=== PATIENT | female | born 1975 | race Caucasian/White ===

== ENCOUNTER → 2017-01-02 | Outpatient (CLI) | payer OTHER ==
[~2017-01-02] MED LIST: VICODIN ES 7501 TAB PO
== END | disposition home or self-care (01) ==
LOC: MRI 09:40
DX: M43.07 Spondylolysis, lumbosacral region (principal); M54.5 Low back pain; R20.0 Anesthesia of skin

== ENCOUNTER → 2017-07-26 | Outpatient (CLI) | payer OTHER | LOC: MAMMO 07:57 | DX: Z12.31 Encounter for screening mammogram for malignant neoplasm of breast (principal) ==

== ENCOUNTER → 2017-08-22 | Outpatient (CLI) | payer OTHER | END | disposition home or self-care (01) | LOC: MAMMO 08:27 | DX: N60.01 Solitary cyst of right breast (principal) ==

== ENCOUNTER → 2018-07-30 | Outpatient (CLI) | payer OTHER | END | disposition home or self-care (01) | LOC: MAMMO 07:49 | DX: Z12.31 Encounter for screening mammogram for malignant neoplasm of breast (principal); R92.8 Other abnormal and inconclusive findings on diagnostic imaging of breast ==

== ENCOUNTER → 2019-08-26 | Outpatient (CLI) | payer OTHER | END | disposition home or self-care (01) | LOC: MAMMO 09:01 | DX: Z12.31 Encounter for screening mammogram for malignant neoplasm of breast (principal) ==

== ENCOUNTER → 2020-08-25 | Outpatient (CLI) | payer OTHER | END | disposition home or self-care (01) | LOC: COVID19 12:00 | PROVIDERS: ATTEND Family Medicine | DX: Z20.828 Contact with and (suspected) exposure to other viral communicable diseases (principal) ==

== ENCOUNTER → 2020-10-10 | Outpatient (CLI) | payer OTHER | END | disposition home or self-care (01) | LOC: ORTHO 00:25 | PROVIDERS: ATTEND Orthopaedic Surgery | DX: M17.12 Unilateral primary osteoarthritis, left knee (principal) ==

== ENCOUNTER → 2021-06-09 | Outpatient (CLI) | payer OTHER | END | disposition home or self-care (01) | LOC: MRI 10:43 | PROVIDERS: ATTEND Chiropractor Sports Physician | DX: M51.26 Other intervertebral disc displacement, lumbar region (principal); M43.07 Spondylolysis, lumbosacral region ==

== ENCOUNTER → 2021-08-31 | Outpatient (CLI) | payer OTHER | END | disposition home or self-care (01) | LOC: MAMMO 09:22 | PROVIDERS: ATTEND Family Medicine | DX: Z12.31 Encounter for screening mammogram for malignant neoplasm of breast (principal) ==

== ENCOUNTER → 2022-04-09 | Outpatient (CLI) | payer OTHER | END | disposition home or self-care (01) | LOC: MRI 09:45 | PROVIDERS: ATTEND Chiropractor Sports Physician | DX: M19.072 Primary osteoarthritis, left ankle and foot (principal); M25.472 Effusion, left ankle; M77.32 Calcaneal spur, left foot; M25.772 Osteophyte, left ankle ==

== ENCOUNTER 2022-06-05 11:10 | Inpatient (IN) | payer OTHER ==
[~2022-06-05] VITALS: Ht 160 cm; Wt 79.1 kg
[2022-06-05 11:34] VITALS: BP 118/71
[2022-06-05 13:00] LABS: BASO # 0.1 10*3/uL (0.0-0.1); BASO % 0.6 % (0.0-1.0); EOS # 0.1 10*3/uL (0.0-0.4); HEMATOCRIT 38.2 % (37.0-47.0); LYMPH # 2.1 10*3/uL (1.3-4.4); LYMPH % 20.1 % (27.0-41.0); MEAN CELL VOLUME 86.8 fl (81.0-99.0); MEAN CORPUSCULAR HGB 28.9 pg (27.0-31.0); MEAN CORPUSCULAR HGB CONC 33.2 g/dl (33.0-37.0); MEAN PLATELET VOLUME 10.5 fl (9.6-12.3); MONO # 0.6 10*3/uL (0.1-1.0); MONO % 5.7 % (3.0-9.0); NEUT # 7.5 10*3/uL (2.3-7.9); NEUT % 72.2 % (47.0-73.0); PLATELET COUNT AUTOMATED 364 10*3/uL (130-400); RED CELL DISTRI WIDTH 14.2 % (0-14.5); WHITE BLOOD COUNT 10.3 10*3/uL (4.8-10.8)
[2022-06-05 13:11] LABS: ACT PARTIAL THROMBO TIME 27.3 SECONDS (20.0-32.1)
[2022-06-05 13:17] LABS: ALKALINE PHOSPHATASE 75 U/L (45-117); BUN 12 mg/dl (7-24); CHLORIDE 109 mmol/L (98-107); CREATININE 0.64 mg/dL (0.55-1.02); LIPASE 121 U/L (73-393); POTASSIUM 3.8 mmol/L (3.5-5.1); SGOT/AST 59 IU/L (3-35); SGPT/ALT 17 U/L (12-78); SODIUM 139 mmol/L (136-145); TOTAL PROTEIN 7.5 gm/dL (6.4-8.2)
[2022-06-05] MEDS ORDERED: PANTOPRAZOLE SO40 MG PO (14:10)
[2022-06-05] MEDS ORDERED: PERCOCET 5-3251 EACH PO (14:10)
[2022-06-05] MEDS ORDERED: AMLODIPINE BESYL5 MG PO (14:10)
[2022-06-05 14:11] VITALS: BP 120/67
[2022-06-05] MEDS ORDERED: MELOXICAM15 MG PO (14:11)
[2022-06-05 16:59] VITALS: BP 129/76
[2022-06-05 17:20] VITALS: BP 120/83
[2022-06-05 20:00] VITALS: BP 111/61
[2022-06-06] VITALS: BP 94/55
[2022-06-06 04:00] LABS: BASO # 0.1 10*3/uL (0.0-0.1); BASO % 0.6 % (0.0-1.0); EOS # 0.2 10*3/uL (0.0-0.4); HEMATOCRIT 34.9 % (37.0-47.0); LYMPH # 2.8 10*3/uL (1.3-4.4); LYMPH % 23.7 % (27.0-41.0); MEAN CELL VOLUME 89.3 fl (81.0-99.0); MEAN CORPUSCULAR HGB 28.9 pg (27.0-31.0); MEAN CORPUSCULAR HGB CONC 32.4 g/dl (33.0-37.0); MEAN PLATELET VOLUME 10.6 fl (9.6-12.3); MONO # 0.9 10*3/uL (0.1-1.0); MONO % 7.3 % (3.0-9.0); NEUT # 7.9 10*3/uL (2.3-7.9); PLATELET COUNT AUTOMATED 296 10*3/uL (130-400); RED BLOOD COUNT 3.91 10*6/uL (4.10-5.10); RED CELL DISTRI WIDTH 14.7 % (0-14.5)
[2022-06-06 04:18] LABS: ALKALINE PHOSPHATASE 73 U/L (45-117); BUN 10 mg/dl (7-24); CHLORIDE 110 mmol/L (98-107); CHOLESTEROL 80 mg/dL (<200); CREATININE 0.74 mg/dL (0.55-1.02); POTASSIUM 4.3 mmol/L (3.5-5.1); SGOT/AST 75 IU/L (3-35); SGPT/ALT 24 U/L (12-78); SODIUM 139 mmol/L (136-145); TOTAL PROTEIN 6.5 gm/dL (6.4-8.2); TRIGLYCERIDES 83 mg/dl (<150)
[2022-06-06 04:22] LABS: FREE T4 1.24 ng/dl (0.76-1.46); LDL CHOLESTEROL 23 mg/dL (9-159); THYROID STIM HORMONE (HS) 0.788 uIU/ml (0.358-4.75)
[2022-06-06 07:34] LABS: VITAMIN D, 25-HYDROXY 32.8 ng/mL (30-100)
[2022-06-06 08:00] VITALS: BP 105/61
[2022-06-06] MEDS ORDERED: ATORVASTATIN CA40 M1 PO (08:04)
[2022-06-06] MEDS ORDERED: ASPIRIN ADULT L81 M2 PO (08:04)
[2022-06-06] MEDS ORDERED: LOPRESSOR25 MG PO (08:04)
== END 2022-06-06 09:16 | disposition short-term general hospital (02) | DRG 190 ==
LOC: ED 11:10 → EDHOLD 14:44 → 5E 14:44
PROVIDERS: Physician Assistant; Student in an Organized Health Care Education/Training Program; ADMIT Internal Medicine; ATTEND Internal Medicine
DX: I21.4 Non-ST elevation (NSTEMI) myocardial infarction (principal); I24.9 Acute ischemic heart disease, unspecified; E44.1 Mild protein-calorie malnutrition; I10 Essential (primary) hypertension; R74.01 Elevation of levels of liver transaminase levels; M25.512 Pain in left shoulder; M54.16 Radiculopathy, lumbar region; F17.210 Nicotine dependence, cigarettes, uncomplicated; R73.9 Hyperglycemia, unspecified; E83.41 Hypermagnesemia; Z88.6 Allergy status to analgesic agent; Z88.8 Allergy status to other drugs, medicaments and biological substances; Z98.51 Tubal ligation status; Z90.49 Acquired absence of other specified parts of digestive tract; Z83.3 Family history of diabetes mellitus; Z82.49 Family history of ischemic heart disease and other diseases of the circulatory system; Z78.9 Other specified health status; Z68.30 Body mass index [BMI] 30.0-30.9, adult

== ENCOUNTER → 2022-12-07 | Outpatient (CLI) | payer OTHER ==
[~2022-12-07] MED LIST changes: +AMLODIPINE BESYL5 MG PO; +ASPIRIN ADULT L81 M2 PO; +ATORVASTATIN CA40 M1 PO; +LOPRESSOR25 MG PO; +MELOXICAM15 MG PO; +PANTOPRAZOLE SO40 MG PO; +PERCOCET 5-3251 EACH PO
[2022-12-07 11:15] LABS: BUN 10 mg/dl (9-23); CHLORIDE 107 mmol/L (98-107); CHOLESTEROL 85 mg/dL (<200); LDL CHOLESTEROL 19 mg/dL (9-159); POTASSIUM 4.5 mmol/L (3.4-5.1); TRIGLYCERIDES 101 mg/dl (<150)
[2022-12-07 12:22] LABS: THYROID STIM HORMONE (HS) 1.307 uIU/ml (0.550-4.780)
== END | disposition home or self-care (01) ==
LOC: LAB 08:59
PROVIDERS: ATTEND Family Medicine
DX: I10 Essential (primary) hypertension (principal); I25.10 Atherosclerotic heart disease of native coronary artery without angina pectoris; E78.2 Mixed hyperlipidemia

== ENCOUNTER → 2023-10-31 | Outpatient (CLI) | payer OTHER ==
[2023-10-31 11:28] LABS: BUN 9 mg/dl (9-23); CHLORIDE 104 mmol/L (98-107); CHOLESTEROL 93 mg/dL (<200); LDL CHOLESTEROL 28 mg/dL (9-159); POTASSIUM 4.2 mmol/L (3.4-5.1); TRIGLYCERIDES 121 mg/dl (<150)
== END | disposition home or self-care (01) ==
LOC: LAB 10:00 → MAMMO 10:30
PROVIDERS: ATTEND Family Medicine
DX: Z12.31 Encounter for screening mammogram for malignant neoplasm of breast (principal); I10 Essential (primary) hypertension; I25.10 Atherosclerotic heart disease of native coronary artery without angina pectoris

== ENCOUNTER → 2024-04-17 | Outpatient (CLI) | payer OTHER | END | disposition home or self-care (01) | LOC: CT 10:43 | PROVIDERS: ATTEND Internal Medicine | DX: Z12.2 Encounter for screening for malignant neoplasm of respiratory organs (principal); F17.210 Nicotine dependence, cigarettes, uncomplicated; J43.9 Emphysema, unspecified; I25.10 Atherosclerotic heart disease of native coronary artery without angina pectoris; Z90.49 Acquired absence of other specified parts of digestive tract ==

== ENCOUNTER → 2024-11-16 | Outpatient (CLI) | payer OTHER | END | disposition home or self-care (01) | LOC: MAMMO 08:00 | PROVIDERS: ATTEND Family Medicine | DX: Z12.31 Encounter for screening mammogram for malignant neoplasm of breast (principal); R92.323 Mammographic fibroglandular density, bilateral breasts ==

== ENCOUNTER → 2025-04-29 | Outpatient (CLI) | payer OTHER | END | disposition home or self-care (01) | LOC: CT 01:07 | PROVIDERS: ATTEND Internal Medicine | DX: Z12.2 Encounter for screening for malignant neoplasm of respiratory organs (principal); F17.210 Nicotine dependence, cigarettes, uncomplicated ==